=== PATIENT | female | born 1985 | race Caucasian/White ===

== ENCOUNTER 2016-07-25 12:27 | Emergency (ER) | payer OTHER ==
[2016-07-25] MEDS ORDERED: METOCLOPRAMIDE 10 MG/2 ML VIAL ONE (13:22)
[2016-07-25] MEDS ORDERED: METHYLPRED SOD SUCC 125 MG/2 ML VIAL ONE (13:22)
[2016-07-25] MEDS ORDERED: DIPHENHYDRAMINE 50 MG/ML VIAL ONE (13:22)
[2016-07-25] MEDS ORDERED: KETOROLAC 30 MG/ML VIAL ONE (13:23)
[2016-07-25] MEDS ORDERED: SODIUM CHLORIDE 0.9% 1,000 ML ONE (13:23)
== END 2016-07-25 16:17 | disposition home or self-care (01) ==
LOC: ER 13:16
DX: G43.011 Migraine without aura, intractable, with status migrainosus (principal)
CPT/HCPCS: 36415; 70450; 84703; 96361; 96374; 96375; 99284; J1885; J2930